=== PATIENT | female | born 1965 | race Two or more races ===

== ENCOUNTER 2021-10-13 15:23 | Emergency (ER) | payer SELFPAY ==
[~2021-10-13] VITALS: Ht 167.6 cm; Wt 74.1 kg
[2021-10-13 19:45] VITALS: BP 111/76
[2021-10-13] MEDS ORDERED: KETOROLAC TROMETH 30 MG/ML 1ML VIAL IM ONE (19:45)
[2021-10-13] MEDS ORDERED: methylPREDNISolone SOD SUCC 125 MG/2 ML VL IM ONE (19:45)
[2021-10-13] MEDS ORDERED: IBUP800T26 PO (20:14)
[2021-10-13] MEDS ORDERED: CYCL-837 PO (20:14)
[2021-10-13] MEDS ORDERED: SILVER SULFADIAZINE 1 % TOPICAL CREAM 50GM TOP ONE (20:15)
== END 2021-10-13 20:55 | disposition home or self-care (01) ==
LOC: ER 15:23
DX: S90.822A Blister (nonthermal), left foot, initial encounter (principal); M54.30 Sciatica, unspecified side; M79.10 Myalgia, unspecified site; Z88.6 Allergy status to analgesic agent; X58.XXXA Exposure to other specified factors, initial encounter; Y93.89 Activity, other specified; Y92.89 Other specified places as the place of occurrence of the external cause; Y99.8 Other external cause status
CPT/HCPCS: 73610; 73630; 96372; 99284; J1885; J2930

== ENCOUNTER 2022-05-03 15:03 | Emergency (ER) | payer OTHER ==
[~2022-05-03] VITALS: Ht 167.6 cm; Wt 75.3 kg
[~2022-05-03 15:03] MED LIST: CYCL-837 PO; IBUP800T26 PO
[2022-05-03 15:07] VITALS: BP 128/90
== END 2022-05-03 18:47 | disposition left against medical advice (07) ==
LOC: ER 15:03
DX: H92.02 Otalgia, left ear (principal); J02.9 Acute pharyngitis, unspecified; Z88.1 Allergy status to other antibiotic agents